=== PATIENT | male | born 1980 | race African-American/Black ===

== ENCOUNTER 2016-11-12 08:53 | Emergency (ER) | payer SELFPAY ==
[~2016-11-12] VITALS: Ht 176.5 cm; Wt 79.4 kg
[2016-11-12 09:23] VITALS: BP 139/83
--- NOTE | 2016-11-12 10:25 | RAD ---
Right elbow, 3 views, 11/12/2016: History: Pain No fracture or dislocation is identified. No significant arthritic change is seen. No joint effusion is evident. IMPRESSION: No significant right elbow abnormality is detected.
[2016-11-12] MEDS ORDERED: CYCL10TA2 PO (11:24)
[2016-11-12] MEDS ORDERED: NAPR500T8 PO (11:24)
[2016-11-12] MEDS ORDERED: METH4TAB2 PO (11:24)
--- NOTE | 2016-11-12 11:24 | PHYS DOC ---
Past Medical History Past Medical History: No Pertinent History Past Surgical History: No Surgical History Alcohol Use: Occasionally Drug Use: None Adult General Chief Complaint Chief Complaint: UPPER EXTREMITY PAIN HPI HPI Patient is a 36 year old male with no significant medical history who presents today with mild right elbow pain that has been going on for week. Patient states the pain is worse when he tries to move his right elbow. Patient states he does a lot of lifting at work as well as at home and the pain is worse when he is lifting. Patient denies any trauma. Review of Systems Review of Systems Constitutional: Denies fever or chills [] Eyes: Denies change in visual acuity, redness, or eye pain [] Musculoskeletal: Right elbow pain Integument: Denies rash or skin lesions [] Neurologic: Denies headache, focal weakness or sensory changes [] Endocrine: Denies polyuria or polydipsia [] Allergies Allergies Allergies Coded Allergies Type Severity Reaction Last Updated Verified No Known Drug Allergies 11/12/16 No Physical Exam Physical Exam Constitutional: Well developed, well nourished, no acute distress, non-toxic appearance. [] HENT: Normocephalic, atraumatic, bilateral external ears normal, oropharynx moist, no oral exudates, nose normal. [] Back: No tenderness, no CVA tenderness. [] Extremities: Right elbow and upper extremity with no obvious deformity. Tenderness diffusely throughout the right elbow during exam. Full range of motion to the right elbow. Adequate plantar flexion and dorsiflexion of the right forearm. +2 right radial pulse. Adequate ulnar medial, and radial sensation to the right upper extremity. +2 right radial pulse. Cap refill less than 2 seconds the right upper extremity. Sensation intact to the right upper extremity. Neurologic: Alert and oriented X 3, normal motor function, normal sensory function, no focal deficits noted. [] Psychologic: Affect normal, judgement normal, mood normal. [] Current Patient Data Vital Signs Vital Signs Date Time Temp Pulse Resp B/P Pulse Ox O2 Delivery O2 Flow Rate FiO2 11/12/16 09:23 97.9 83 18 100 Room Air 97.9 EKG EKG [] Radiology/Procedures Radiology/Procedures []PROCEDURE: ELBOW RIGHT 3V Right elbow, 3 views, 11/12/2016: History: Pain No fracture or dislocation is identified. No significant arthritic change is seen. No joint effusion is evident. IMPRESSION: No significant right elbow abnormality is detected. DICTATED and SIGNED BY: BEN MORALES MD DATE: 11/12/16 1021 CC: JOSE MVAUGHN Sumner BARRETT ~ Course & Med Decision Making Course & Med Decision Making Pertinent Labs and Imaging studies reviewed. (See chart for details) This is a patient who does lifting at work presenting today with right elbow pain no known injury. Right elbow x-rays interpreted by radiologist are negative for any acute findings. Patient probably has right elbow tendinitis. Discharged with instructions to apply Anirudh wrap to the affected joint. Ice elevation encouraged. Naproxen Medrol dose pack and Flexeril for pain. Follow- up with orthopedic doctor in a week. Dragon Disclaimer Dragon Disclaimer This electronic medical record was generated, in whole or in part, using a voice recognition dictation system. Departure Departure Impression: Primary Impression: Right elbow tendinitis Disposition: HOME, SELF-CARE Condition: STABLE Referrals: NO PCP (PCP) NAVDEEP ESCALANTE II, MD Follow-up with the provided doctor in the next 7 days Patient Instructions: Biceps Tendon Tendinitis (Proximal) and Tenosynovitis with Rehab[facility]Sports[facility] Additional Instructions: You were seen for tendinitis of the right elbow. keep Anirudh wrap to the elbow as needed and tolerated. Ice and elevate the extremity. Follow-up with orthopedic doctor provided. Take the prescribed medicines as needed for pain. Scripts Naproxen 500 Mg Tablet.dr1 Tab PO BID #60 TAB Ref 2 Prov:VAUGHN WRIGHT APRN 11/12/16 Cyclobenzaprine Hcl 10 Mg Tablet1 Tab PO TID #30 TAB Prov:VAUGHN WRIGHT APRN 11/12/16 Methylprednisolone (Medrol)4 Mg Tab.ds.pk1 Pkg PO UD #1 PKG Prov:VAUGHN WRIGHT APRN 11/12/16 VAUGHN WRIGHT APRN Nov 12, 2016 11:24
== END 2016-11-12 12:04 | disposition home or self-care (01) ==
LOC: ER 08:53
DX: M77.9 Enthesopathy, unspecified (principal)
CPT/HCPCS: 73080; 99284